=== PATIENT | male | born 1970 | race Caucasian/White ===

== ENCOUNTER 2020-06-22 17:21 | Outpatient (REF) | payer BC, SELFPAY ==
[2020-06-22 17:58] LABS: MANUAL DIFF FLAG NO
[2020-06-22 18:01] LABS: Basophils Percent Auto 0.7 % (0-2); Eosinophils Absolute Auto 0.2 X10*3/uL (0.0-0.4); Eosinophils Percent Auto 3.4 % (0-4); Hematocrit 45.1 % (42-52); Hemoglobin 15.3 g/dl (14.0-18.0); Imm Gran Abs Auto 0.02 X10*3/uL (0.00-0.03); Imm Gran Pct Auto 0.3 % (0.0-0.4); Lymphocytes Absolute Auto 1.4 X10*3/uL (1.2-4.9); Lymphocytes Percent Auto 22.6 % (20-40); Mean Corpuscular HGB Conc 33.9 g/dl (31.0-36.0); Mean Corpuscular Hemoglobin 29.4 pg (27.0-33.0); Mean Corpuscular Volume 86.7 fL (80-98); Mean Platelet Volume 9.5 fL (9.4-12.4); Monocytes Absolute Auto 0.5 X10*3/uL (0.1-1.2); Monocytes Percent Auto 7.3 % (2-11); Neutrophils Percent Auto 65.7 % (45-73); Platelet Count 226 X10*3/uL (160-400); White Blood Count 6.1 X10*3/uL (4.8-10.8)
[2020-06-22 18:11] LABS: Glucose Urine UA NEG (NEG); Leukocyte Esterase Urine NEG (NEG); Nitrite Urine NEG (NEG); Specific Gravity - Urine >= 1.030 (1.005-1.025); Urine Blood NEG (NEG); Urine Ketones NEG (NEG); Urine Protein NEG (NEG-TRACE)
[2020-06-22 18:20] LABS: Appearance Urine CLEAR; Color Urine YELLOW
[2020-06-22 18:27] LABS: Alanine Aminotransferase 18 U/L (0-40); Albumin Level 4.4 g/dL (3.5-5.0); Alkaline Phosphatase 65 U/L (39-117); Anion Gap 13 (12-20); Aspartate Amino Transferase 22 U/L (5-37); Bilirubin Total 0.9 mg/dL (0.0-1.0); Blood Urea Nitrogen 18 mg/dL (9-16); Carbon Dioxide 29 mmol/L (22-29); Chloride 105 mmol/L (96-108); Cholesterol 191 mg/dL; Estimated Glomerular Filt Rate > 60; Glucose Fasting 77 mg/dL (60-99); HDL Cholesterol 56 mg/dL; LDL Cholesterol Calculated 113 mg/dl; Potassium 3.7 mmol/L (3.3-5.1); Sodium 143 mmol/L (135-145); Total Protein 7.1 g/dL (6.5-8.0); Triglycerides 112 mg/dL
[2020-06-22 18:48] LABS: Free T4 (Free Thyroxine) 1.22 ng/dL (0.71-1.85); Prostate Specific Antigen 0.25 ng/mL (<0.05-4.0)
== END 2020-06-22 17:22 | disposition home or self-care (01) ==
LOC: HO.LAB 17:21
PROVIDERS: PCP Internal Medicine; Visit Provider Internal Medicine
DX: Z00.00 Encounter for general adult medical examination without abnormal findings (principal); I10 Essential (primary) hypertension; Z12.5 Encounter for screening for malignant neoplasm of prostate
CPT/HCPCS: 36415; 80053; 80061; 81003; 84153; 84439; 85025

== ENCOUNTER 2020-11-01 16:51 | Outpatient (REF) | payer BC, SELFPAY ==
[2020-11-01 18:14] LABS: Anion Gap 12 (12-20); Blood Urea Nitrogen 23 mg/dL (9-16); Calcium 9.5 mg/dL (8.4-10.2); Carbon Dioxide 29 mmol/L (22-29); Chloride 105 mmol/L (96-108); Estimated Glomerular Filt Rate > 60; Glucose Random 83 mg/dL (60-115); Potassium 3.9 mmol/L (3.3-5.1); Sodium 142 mmol/L (135-145)
[2020-11-01 18:38] LABS: Thyroid Stimulating Hormone 1.27 uIU/mL (0.32-4.0); Vitamin D 25-OH Total 32.3 ng/mL (>30)
[2020-11-01 18:42] LABS: Vitamin B12 287 pg/mL (200-900)
== END 2020-11-01 16:52 | disposition home or self-care (01) ==
LOC: HO.LAB 16:51
PROVIDERS: PCP Internal Medicine; Visit Provider Internal Medicine
DX: I10 Essential (primary) hypertension (principal); R53.83 Other fatigue; E55.9 Vitamin D deficiency, unspecified
CPT/HCPCS: 36415; 80048; 82306; 82607; 84443

== ENCOUNTER → 2020-12-21 08:33 | Outpatient (REF) | payer BC, SELFPAY ==
--- NOTE | 2020-12-21 08:30 | CA_ITS ---
Transthoracic Echocardiogram Patient (Last, First, Middle): Naren Forbes P Gender: Male Date of : 1970 Age: 50 Procedure Date: 12/21/2020 Procedure Type: Transthoracic Echocardiogram Location: OP Height: 182.88 cm Weight: 86.18 kg BSA: 2.08 m2 Heart Rate: bpm BP: 130 / 90 mmHg Continuous Churn Buttermaker: TORRI Referring MD: Wilian Horton MD Symptoms: I10 HTN R53.83 FATIGUE Study Quality: Fair/Contrast ECG Rhythm: Sinus Conclusions: - The left ventricular systolic function is mildly decreased. The calculated ejection fraction is 52% by biplane method. - No obvious valvular pathology seen on this study. Findings Procedure Information Contrast agent, definity, is being given per protocol without apparent complications. Left Ventricle Normal left ventricular cavity size. There is normal left ventricular wall thickness. The left ventricular systolic function is mildly decreased. The calculated ejection fraction is 52% by biplane method. There is no evidence of regional wall motion abnormalities. Diastolic function is normal for age. Right Ventricle Normal right ventricular cavity size and systolic function. TAPSE 2.24cm. Atria Both atria are normal in size. Aortic Valve There is a normal trileaflet aortic valve. There is no aortic valve stenosis. There is no aortic valve regurgitation. Mitral Valve The mitral valve appears normal. There is trace mitral valve regurgitation. There is no mitral valve stenosis. Pulmonic Valve The pulmonic valve was not well visualized. Tricuspid Valve Normal tricuspid valve structure. There is trace tricuspid valve regurgitation. The pulmonary artery systolic pressure is normal. Great Vessels The aortic annulus, sinuses of valsalva, and asc aorta are normal in size. Venous The inferior vena cava is normal in size and collapses greater than 50% with inspiration. Pericardium/Pleural There is no evidence of pericardial effusion. Prior Study Comparison No prior study available for comparison. Recommendations, Care & Conclusions No obvious valvular pathology seen on this study. Measurements 2D Linear Measurements IVSd: 0.92 0.6-0.9/0.6-1.0 cm LVIDd: 5.21 3.9-5.3/4.2-5.9 cm LVIDd Index: 2.50 2.4-3.2/2.2-3.1 cm/m2 LVIDs: 3.49 2.0-3.6 cm LVPWd: 0.72 0.7-1.1 cm Ao Root: 3.10 2.1-3.5 cm LA Diam: 3.70 2.7-3.8/3.0-4.0 cm LAIDs Index: 1.78 1.5-2.3 cm/m2 LV Mass: 187.20 67-162/88-224 g LV Mass Index: 90.00 43-95/49-115 g/m2 LVOT Diam: 2.20 3.0+(-)1.3 cm 2D Systolic Function EF 4C: 50.80 >55% EF 2C: 54.90 >55% EF BiP: 52.40 >55% Mitral Valve MV Pk E: 0.80 MV PK A: 0.75 MV Decel Time: 309.00 E/A: 1.10 E'Lateral: 10.60 E'Medial: 9.14 E/E' Med: 8.80 E/E' Lat: 7.60 PHT: 90.00 MVA PHT: 2.44 Decel Nolan: 2.60 Aortic Valve AoV Pk Edgard: 1.38 AoV Mn Edgard: 0.92 AoV VTI: 0.28 AoV Pk Grad: 8.00 Aov Mn Grad: 4.00 TRENT Cont.VTI: 3.21 LVOT LVOT Pk Edgard: 1.19 LVOT Mn Edgard: 0.81 LVOT VTI: 0.24 LVOT Pk Grad: 6.00 LVOT Mn Grad: 3.00 LVOT Diam: 2.20 LVOT Area: 3.80 Diastolic Function MV Pk E: 0.80 MV Pk A: 0.75 E/A: 1.10 E'Medial: 9.14 E/E' Med: 8.80 E' Laterial: 10.60 E/E' Lat: 7.60 Tricuspid Valve TR Pk Edgard: 1.79 TR Pk Grad: 13.00 RA Press: 3.00 RVSP: 16.00 Great Vessels Aorta Ao Root-2D: 3.10 2.0-3.7 cm Ao Asc: 3.40 2.1-3.4 cm Ao Arch: 2.90 Updated in Other Vendor System with Status of Final Roderick Tafoya MD electronically signed on 12/22/2020 11:21:33 AM with status of Final
== END ==
LOC: HO.CARD 08:33
PROVIDERS: PCP Internal Medicine; Visit Provider Internal Medicine
DX: I10 Essential (primary) hypertension (principal); R53.83 Other fatigue
CPT/HCPCS: 93306; Q9957

== ENCOUNTER 2021-02-25 06:26 | Day surgery (SDC) | payer BC, SELFPAY ==
[2021-02-19 15:55] VITALS: BMI 27.1
--- NOTE | 2021-02-22 08:41 | HO.ANESPROP2 ---
Documented by User: Dianne Todd NP 02/22/21 08:42 HPI - Anesthesia Eval Consult details Narrative: 51yo M for Colonoscopy [facility] Past Medical History Medical History (Updated 02/19/21 @ 15:54 by Sarah Galvin RN) HTN (hypertension) Surgical History Surgical History (Updated 02/19/21 @ 15:54 by Sarah Galvin, RN) No pertinent past surgical history Social History Social History Patient Tobacco Use Status: Never used Tobacco Use of substances other than those prescribed or required for medical reasons: No Are you DNR?: No Advance Directives: No Advance Directives Information Provided: Yes Meds Allergies Allergy/AdvReac Type Severity Reaction Status Date / Time No Known Allergies Allergy Verified 02/19/21 15:54 Home Medications Medication Instructions Recorded Confirmed Last Taken Type doxazosin 2 mg tablet 1 tab PO BEDTIME 02/19/21 02/19/21 Unknown History losartan 50 mg tablet 1 tab PO DAILY 02/19/21 02/19/21 Unknown History Exam Exam Date and Time: February 22, 2021 0841 Height,Weight and Vital Signs: Height 6 ft Weight 90.718 kg Narrative Narrative: ECHO 12/2020 Conclusions: - The left ventricular systolic function is mildly decreased.? ? The calculated ejection fraction is 52% by biplane method. ? ? ? - No obvious valvular pathology seen on this study.? ? Assessment and Plan Assessment Anesthesia Assessment: Chart Reviewed Documented by User: Christine Norton MD 02/25/21 07:15 [facility] Past Medical History Medical History (Updated 02/19/21 @ 15:54 by Sarah Galvin RN) HTN (hypertension) Surgical History Surgical History (Updated 02/19/21 @ 15:54 by Sarah Galvin, RN) No pertinent past surgical history Social History Social History Patient Tobacco Use Status: Never used Tobacco Use of substances other than those prescribed or required for medical reasons: No Are you DNR?: No Advance Directives: No Advance Directives Information Provided: Yes Meds Allergies Allergy/AdvReac Type Severity Reaction Status Date / Time No Known Allergies Allergy Verified 02/19/21 15:54 Home Medications Medication Instructions Recorded Confirmed Last Taken Type doxazosin 2 mg tablet 1 tab PO BEDTIME 02/19/21 02/19/21 Unknown History losartan 50 mg tablet 1 tab PO DAILY 02/19/21 02/19/21 Unknown History Exam Airway Mallampati Class: III TM Dist: >3cm Neck ROM: Full
[2021-02-25] MEDS: Lactated Ringers 1,000 ML 100 ML IVCONT (06:59)
[2021-02-25 07:55] VITALS: BP 137/80; PULSE 53; RESP 20; TEMP 36.5; O2SAT 97
[2021-02-25 08:22] VITALS: BP 111/63; PULSE 61; RESP 16; TEMP 36.3; O2SAT 96
--- NOTE | 2021-02-25 08:22 | PM.OP ---
Brief Operative Note Date of Service: 02/25/21 Pre-op diagnosis: Screening Post-op diagnosis: other (Colon polyps) Procedure: Colonoscopy to the cecum and TI with bx/removal of polyp, and snare polypectomy Surgeon: Naren Burt Anesthesia: MAC Was an Business Area Manager used for this Procedure?: No Estimated blood loss (mL): 3.0 Pathology: other (A. Polyp at 30cm B. Rectal polyp) Condition: stable Disposition: PACU
--- NOTE | 2021-02-25 08:35 | OP_ITS ---
SURGEON: Naren Burt MD INDICATIONS: The patient presents for evaluation of colorectal cancer screening. Full consent has been obtained from him for this, including risks of bleeding and perforation. PREOPERATIVE DIAGNOSIS: Colorectal cancer screening. POSTOPERATIVE DIAGNOSIS: PROCEDURE PERFORMED: Colonoscopy to cecum and terminal ileum with biopsy and removal of polyp, and snare polypectomy. ESTIMATED BLOOD LOSS: COMPLICATIONS: ANESTHESIA: Monitored anesthesia care. ASSISTANTS: SPECIMENS: POSTOPERATIVE DIAGNOSES: Colorectal cancer screening, small colon polyps, diverticulosis, and minimal internal hemorrhoids. DESCRIPTION OF PROCEDURE: The patient was placed in the left lateral decubitus position. The digital rectal exam revealed no abnormalities. The Olympus video pediatric colonoscope was entered into the rectum and advanced easily to the cecum. Once in the cecum, I did identify normal-appearing cecal pouch with appendiceal orifice and a normal-appearing ileocecal valve. The terminal ileum was cannulated and appeared normal. The scope was withdrawn back in the colon. The entire cecum and ileocecal valve appeared normal. The scope was slowly withdrawn assessing all mucosal surfaces carefully. Preparation was excellent. At 30 cm, was a flat approximately 3 mm polyp, which was biopsied and completely removed with cold biopsy forceps. There was a mild amount of sigmoid diverticulosis. There was no sign of any colitis nor angiodysplasia. In the rectum, in the retroflexed position, was an approximately 5 mm polyp, which was snared and removed with the cold snare. There was no sign of any residual polyp nor bleeding. Minimal internal hemorrhoids were noted as well. The scope was straightened out and withdrawn from the patient. He tolerated the procedure well and was returned to the recovery area in stable condition. IMPRESSION: 1. Small colon polyps, status post biopsy and removal, and snare polypectomy. 2. Mild sigmoid diverticulosis. 3. Minimal internal hemorrhoids. PLAN: The results of the pathology will be checked. If either of these are tubular adenoma, I would recommend a followup colonoscopy in 5 years. If they are only hyperplastic, I would recommend a followup colonoscopy in 10 years. He was advised not to use any aspirin and NSAIDs for 1 week. MD LINDA Tidwell/DEREKL / [id number]
[2021-02-25 08:37] VITALS: BP 117/83; PULSE 60; RESP 16; TEMP 36.3; O2SAT 96
== END 2021-02-25 09:15 | disposition home or self-care (01) ==
PROVIDERS: PCP Internal Medicine; Visit Provider Internal Medicine
PROC: 0DJD8ZZ Inspection of Lower Intestinal Tract, Via Natural or Artificial Opening Endoscopic (ICD-10-PCS; CPT 45378; principal; 2021-02-25 07:30)
DX: Z12.11 Encounter for screening for malignant neoplasm of colon (principal); D12.8 Benign neoplasm of rectum; K63.5 Polyp of colon; K57.30 Diverticulosis of large intestine without perforation or abscess without bleeding; K64.8 Other hemorrhoids; I10 Essential (primary) hypertension; Z79.899 Other long term (current) drug therapy
CPT/HCPCS: 45385; 45380; 88305

== ENCOUNTER 2023-05-19 07:39 | Outpatient (REF) | payer BC, SELFPAY ==
[2023-05-19 11:12] LABS: MANUAL DIFF FLAG NO
[2023-05-19 11:21] LABS: Basophils Percent Auto 0.9 % (0-2); Eosinophils Absolute Auto 0.1 X10*3/uL (0.0-0.4); Eosinophils Percent Auto 2.6 % (0-4); Hematocrit 43.7 % (42.0-52.0); Hemoglobin 14.9 g/dl (14.0-18.0); Imm Gran Abs Auto 0.02 X10*3/uL (0.00-0.03); Imm Gran Pct Auto 0.6 % (0.0-0.4); Lymphocytes Absolute Auto 0.8 X10*3/uL (1.2-4.9); Lymphocytes Percent Auto 24.4 % (20-40); Mean Corpuscular HGB Conc 34.1 g/dl (31.0-36.0); Mean Corpuscular Hemoglobin 29.4 pg (27.0-33.0); Mean Corpuscular Volume 86.4 fL (80.0-98.0); Mean Platelet Volume 9.5 fL (9.4-12.4); Monocytes Absolute Auto 0.3 X10*3/uL (0.1-1.2); Monocytes Percent Auto 8.8 % (2-11); Neutrophils Absolute Auto 2.1 x10*3/uL (2.0-8.3); Neutrophils Percent Auto 62.7 % (45-73); Platelet Count 208 X10*3/uL (160-400); Red Blood Count 5.06 X10*6/uL (4.60-5.80); Red Cell Distribution Width 12.3 % (11.0-16.0); White Blood Count 3.4 X10*3/uL (4.8-10.8)
[2023-05-19 11:50] LABS: Alanine Aminotransferase 41 U/L (0-40); Alkaline Phosphatase 61 U/L (39-117); Anion Gap 10 (12-20); Aspartate Amino Transferase 27 U/L (5-37); Bilirubin Total 0.9 mg/dL (0.0-1.0); Blood Urea Nitrogen 20 mg/dL (9-16); Calcium 9.4 mg/dL (8.4-10.2); Carbon Dioxide 26 mmol/L (22-29); Chloride 111 mmol/L (96-108); Cholesterol 170 mg/dL (<200); Estimated Glomerular Filt Rate > 60; Glucose Fasting 83 mg/dL (60-99); HDL Cholesterol 41 mg/dL (>40); LDL Cholesterol Calculated 116 mg/dL (<100); Potassium 4.1 mmol/L (3.3-5.1); Sodium 143 mmol/L (135-145); Total Protein 6.8 g/dL (6.5-8.0); Triglycerides 66 mg/dL (<150)
[2023-05-19 12:30] LABS: Prostate Specific Antigen Scr 0.18 ng/mL (<0.05-4.0)
== END 2023-05-19 07:40 | disposition home or self-care (01) ==
LOC: HO.10HDL 07:39
PROVIDERS: Visit Provider Internal Medicine
DX: Z00.00 Encounter for general adult medical examination without abnormal findings (principal); Z12.5 Encounter for screening for malignant neoplasm of prostate
CPT/HCPCS: 36415; 80053; 80061; 84153; 85025

== ENCOUNTER 2023-07-22 09:37 | Outpatient (AMB) | payer BC, SELFPAY ==
[2023-07-22 09:39] VITALS: BP 138/84; PULSE 73; O2SAT 98; BMI 30.2
--- NOTE | 2023-07-22 09:39 | A.OFFPC_ITS ---
Vital Signs 07/22/23 09:39 Height 6 ft Weight 223 lb 0.4 oz BMI 30.2 BP 138/84 Blood Pressure Location Lt brachial Position Sitting Pulse 73 Pulse Source Pulse Oximeter Pulse Oximetry (%) 98 Oxygen Delivery Method Room Air Intake Visit Reasons: ear / sinus pain Intake Note: pt states sinus pressure and ear pain X1week Test Bore Helper Required: No Allergies No Known Allergies Allergy (Verified 07/22/23 10:55) Medication List - Last Reconciled 07/22/23 by [place] No doxazosin 1 tab PO BEDTIME losartan 1 tab PO DAILY Tobacco use date assessed: 07/22/23 HPI HPI Comments History of Present Illness Details Here today ear pain & sinus pain had a cold a few weeks ago; sx resolved then 1.5 weeks ago having pain in L ear , + s inus pain Admits sinus pain is a little better feels like a foggy head admits chronic ear wax impaction feels different used dayquil/nyquil w/o relief PFSH Medical History (Updated 07/22/23 @ 11:02 by [place] No) HTN (hypertension) Surgical History (Updated 02/19/21 @ 15:54 by Sarah Galvin RN) No pertinent past surgical history Social History Housing: House Patient Tobacco Use Status: Never used Tobacco service: No Current occupational status: employed Cognitive needs: No Hearing needs: No Vision needs: No Questionnaire AUDIT C Alcohol Use Questionnaire (AUDIT-C) 1. How often do you have a drink containing alcohol?: Never 3. How often do you have six or more drinks on one occasion?: Never Total Score: 0 Review of Systems Const All systems reviewed & are unremarkable except as noted in HPI and below Physical exam (Primary Care) Vital Signs: Last Vital Signs Pulse 73 07/22/23 09:39 BP 138/84 07/22/23 09:39 Pulse Ox 98 07/22/23 09:39 Oxygen Delivery Method Room Air 07/22/23 09:39 BMI result Body Mass Index 30.2 Tobacco/Smoking Status: Tobacco use Status Tobacco use date assessed 07/22/23 07/22/23 09:41 Patient Tobacco Use Status Never used Tobacco 07/22/23 09:41 Const Other: Awake alert NAD Sclera and conjunctiva clear bilat Cerumen impaction on the left unable to see TM, cerumen in right EAC, able to see some of the TM which is intact and cloudy Nares patent, turbinates pale and edematous worse on the left side, maxillary sinus tenderness on the left with palpation MMM, pharynx WNL RRR LS CTAB Assessment and Plan Assessment & Plan (1) Acute sinus infection: Code(s): J01.90 - Acute sinusitis, unspecified Qualifiers: Sinusitis location: maxillary Recurrence: non-recurrent Qualified Code(s): J01.00 - Acute maxillary sinusitis, unspecified (2) Impacted cerumen of both ears: Code(s): H61.23 - Impacted cerumen, bilateral Plan: Medications: New amoxicillin-pot clavulanate 875-125 mg 1 tab PO BID 14 tabs 0RF 7 days Patient Instructions: What Is It? Sinuses are air-filled spaces behind the bones of the upper face: between the eyes and behind the forehead, nose and cheeks. The lining of the sinuses are made up of cells with tiny hairs on their surfaces called cilia. Other cells in the lining produce mucus. The mucus traps germs and pollutants and the cilia push the mucus out through narrow sinus openings into the nose. Wh en the sinuses become inflamed or infected, the mucus thickens and clogs the openings to one or more sinuses. Fluid builds up inside the sinuses causing increased pressure. Also bacteria can become trapped, multiply and infect the lining. This is sinusitis. Prevention There are some measures you can take to decrease your risk of developing sinusitis. If you smoke cigarettes, you should quit. The smoke can irritate nasal passageways and increase the likelihood of infection. Nasal allergies can trigger sinus infections, too. By identifying the allergen (the substance causing the allergic reaction) and avoiding it, you can help prevent sinusitis. If you have congestion from a cold or allergies, the following may help to reduce the risk of developing sinusitis: Drink lots of water. This thins nasal secretions and keeps mucous membranes moist. Use steam to soothe nasal passages. Breathe deeply while standing in a hot shower, or inhale the vapor from a basin filled with hot water while holding a towel over your head. Avoid blowing your nose with great force, which can push bacteria into the sinuses. Some doctors advise periodic home nasal washings to clear secretions. This may help prevent, and also treat, sinus infections. Treatment Many sinus infections improve without treatment. However, several medications may speed recovery and reduce the chance that an infection will become chronic. Decongestants - Congestion often triggers sinus infections, and decongestants can open the sinuses and allow them to drain. Several are available: Pseudoephedrine (Sudafed) is available without prescription, alone or in combination with other medications in multi-symptom cold and sinus remedies. Pseudoephedrine can cause insomnia, racing pulse and jitteriness. Do not use if you have high blood pressure or a heart condition. Phenylephrine (such as Sudafed PE) is an alternative clvm-imy-jnoeonn oral decongestant. If you take products containing oral phenylephrine, check with the pharmacist to be certain there is no interaction with other medications you take. Oxymetazoline (Afrin, Dristan and others) and phenylephrine (Mateo-Synephrine and others) are found in nasal sprays. They are effective and may be less likely to cause the side effects seen with pseudoephedrine. However, using a nasal decongestant for more than three days can cause worse symptoms when you stop the medication. This is called the rebound effect. Antihistamines - These medications help to relieve the symptoms of nasal allergies that lead to inflammation and infections. However, some doctors advise against using antihistamines during a sinus infection because they can cause excessive drying and slow the drainage process. Glod-hti-gtnfhja antihistamines include diphenhydramine (Benadryl and others), chlorpheniramine (Chlor-Trimeton and others) and loratadine (Claritin). Fexofenadine (Mari) and cetrizine (Zyrtec) are available by prescription. Nasal steroids - Anti-inflammatory sprays such as mometasone (Nasonex) and fluticasone (Flonase), both available by prescription, reduce swelling of nasal membranes. Like antihistamines, nasal steroids can be most useful for those who have nasal allergies. Nasal steroids tend to produce less drying than antihistamines. Unlike nasal decongestants, nasal steroids can be used for prolonged periods. Saline nasal sprays - These salt-water sprays are safe to use and can provide some relief by adding moisture to the nasal passages, thinning mucus secretions and helping to flush out any bacteria that may be present. Pain relievers - Acetaminophen (Tylenol), ibuprofen (Advil, Motrin and others) or naproxen (Aleve) can be taken sinus pain. Antibiotics - Your doctor may prescribe an antibiotic if he or she suspects that a bacterial infection is caus ing your sinusitis. If you start taking an antibiotic, complete the entire course so that the infection is completely killed off. Not all cases of sinusitis require antibiotic treatment: Talk with your doctor about whether an antibiotic is right for you. Keep in mind that antibiotics can cause side effects, such as allergic reactions, rash and diarrhea. In addition, overusing antibiotics eventually leads to the spread of bacteria that no longer can be killed by the most commonly prescribed antibiotics. When To Call A Professional Contact a doctor if you experience facial pain along with a headache and fever, cold symptoms that last longer than seven to 10 days, or persistent green discharge from the nose. If your symptoms don't improve within a week of beginning treatment, call your doctor. Call sooner if symptoms are getting worse. If you have repeated bouts of acute sinusitis, you may have allergies or another treatable cause of sinus congestion. Ask your doctor for advice. Earwax (Cerumen Impaction) Created in Ears Earwax, called cerumen, is produced by special wax-forming glands located in the skin of the outer one-third of the ear canal. It is normal to have cerumen in ear canal as this waxy substance serves as a self-cleaning agent with protective, lubricating, and antibacterial properties. The absence of earwax may result in dry, itchy ears. Self-cleaning means there is a slow and program services assistant movement of earwax and skin cells from the eardrum to the ear opening. Old earwax is constantly being transported, assisted by chewing and jaw motion, from the ear canal to the ear opening where, most of the time, it dries, flakes, and falls out. What Are the Symptoms of an Earwax Blockage? Symptoms of an earwax problem may include: Earache Feeling of plugged hearing or fullness in the ear Partial hearing loss that gets worse Tinnitus, ringing, or noises in the ear Itching, odor, or discharge Coughing Pain Infection What Causes Earwax Blockage? When a patient has wax blockage against the eardrum, it is often because they have been probing the ear with such things as cotton-tipped swabs, alia pins, or twisted napkin corners. These objects only push the wax in deeper in the ear canal. Why Is It Dangerous to Use Swabs to Remove Earwax? Wax blockage is one of the most common causes of hearing loss. This is often caused by attempts to clean the ear with cotton swabs. Most cleaning attempts merely push the wax deeper into the ear canal which is shaped like an hourglass, causing a blockage at the narrowing part of the ear canal. In addition, accidental trauma to the ear drum or ear bones can occur if the swab is pushed too deep. Good intentions to keep ears clean may lessen the ability to hear. The ear is a delicate and complicated body part, including the skin of the ear canal and the eardrum. Therefore, special care should be given to this part of the body. Discontinue the habit of inserting cotton-tipped swabs or other objects into the ear canals. What Are the Treatment Options? Cleaning a working ear can be done by washing it with a soft cloth, but do not insert anything into the ear. Ideally, the ear canals should never have to be c leaned. However, that isn?t always the case. The ears should be cleaned when enough earwax gathers to cause symptoms or to prevent a needed assessment of the ear by your doctor. This condition is call cerumen impaction. Most cases of ear wax blockage respond to home treatments used to soften wax. Patients can try placing a few drops of mineral oil, baby oil, glycerin, or commercial drops in the ear. Detergent drops such as hydrogen peroxide or carbamide peroxide (available in most pharmacies) may also aid in the removal of wax. Irrigation or ear syringing is commonly used for cleaning and can be performed by a physician or at home using a commercially available irrigation kit. Common solutions used for syringing include water and saline, which should be warmed to body temperature to prevent dizziness. Ear syringing is most effective when water, saline, or wax dissolving drops are put in the ear canal 15 to 30 minutes before treatment. Caution is advised to avoid having your ears irrigated if you have diabetes, a hole in the eardrum (perforation), tube in the eardrum, skin problems such as eczema in the ear canal or a weakened immune system. >> If you have been prescribed Debrox, use as directed for 5 nights and return to the office on Day 6 for an ear lavage to remove the wax<< Manual removal of earwax is also effective. This is most often performed by an ENT (ear, nose, and throat) specialist, or orthodontic technician, using suction or special miniature instruments, and a microscope to magnify the ear canal. Manual removal is preferred if your ear canal is narrow, the eardrum has a perforation or tube, other methods have failed, or if you have skin problems affecting the ear canal, diabetes or a weakened immune system. When Should I Talk to a Doctor? If home treatments do not help, or if wax has accumulated so much that it blocks your ear canal and your ability to hear, an ENT specialist may prescribe eardrops designed to soften wax, or they may wash or vacuum it out. Your ENT specialist may also need to remove the wax under microscopic visualization. If there is a possibility of a perforation in the eardrum, consult a physician prior to trying any gkhn-tgy-wtppgmc remedies. Putting eardrops or other products in the ear with the presence of an eardrum perforation may cause pain or an infection. Washing water through such a hole could start an infection. If you are prone to repeated wax impaction or use hearing aids, consider seeing your doctor every six to 12 months for a checkup and routine preventive cleaning. What Questions Should I Ask My Doctor? What are the benefits and risks/side effects of different cerumen removal management options: earwax softening products, water irrigation vs. physical removal? Does cerumen accumulation vary with age, gender, familial or dietary intake? How do I manage swimming underwater with cerumen impaction? Should anything be done to the ears to prevent a buildup of earwax? How often should cerumen be removed from the ears? Are ear candles a safe option for removing earwax? Coding Level of Care Code Est Pt Level 3 (29025) Diagnoses Acute non-recurrent maxillary sinusitis J01.00 Sinusitis location: maxillary Recurrence: non-recurrent Impacted cerumen of both ears H61.23
== END 2023-07-22 11:04 | disposition home or self-care (01) ==
PROVIDERS: PCP Internal Medicine; Visit Provider Nurse Practitioner Family
DX: J01.00 Acute maxillary sinusitis, unspecified (principal); H61.23 Impacted cerumen, bilateral
CPT/HCPCS: 99213

== ENCOUNTER → 2023-10-28 10:59 | Outpatient (AMB) | payer BC, SELFPAY ==
--- NOTE | 2023-10-28 11:21 | AM.OFFWIN_ITS ---
Intake Vital Signs 10/28/23 11:22 Weight 221 lb 8 oz BP 128/82 Blood Pressure Location Lt brachial Position Sitting Pulse 58 Pulse Source Pulse Oximeter Pulse Oximetry (%) 98 Oxygen Delivery Method Room Air Intake Visit Reasons: Clogged ears Intake Note: patient here c/o clogged ears. 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 He states that it feels like his ears need to get flushed. No ear pain. No sinus pain or pressure. No fevers or chills. No dizziness. He is intermittently using Debrox drops. Left ear feels worse than right. No ringing. ON LICENSE OF [facility] Medical History (Updated 10/28/23 @ 13:19 by Laura York PA-C) HTN (hypertension) Surgical History (Updated 02/19/21 @ 15:54 by Sarah Galvin RN) No pertinent past surgical history Social History Housing: House Patient Tobacco Use Status: Never used Tobacco service: No Current occupational status: employed Cognitive needs: No Hearing needs: No Vision needs: No Physical Exam Vital Signs: Last Vital Signs Pulse 58 10/28/23 11:22 BP 128/82 10/28/23 11:22 Pulse Ox 98 10/28/23 11:22 Oxygen Delivery Method Room Air 10/28/23 11:22 Const Orientation/consciousness: patient oriented x3 HEENT Other: Cerumen impaction noted on the left. Moderate amount of cerumen noted on the right. Following ear lavage canals are clear, TMs WNL. Ears: hearing grossly normal bilaterally Face and sinus: Yes sinuses nontender Mouth: Normal oral and palatal mucosa present Throat: Yes posterior oropharynx normal Neck Thyroid: Thyroid normal Lymphatic: no lymphadenopathy noted Resp Auscultation: clear to auscultation bilaterally Cardio Rate: regular rate Rhythm: regular rhythm Heart sounds: S1 normal heart sound present and S2 normal heart sound present Neuro General: patient oriented x3, gait normal and no focal motor deficits Assessment & Plan Assessment & Plan (1) Impacted cerumen of both ears: Code(s): H61.23 - Impacted cerumen, bilateral Plan: Ear lavage completed. Consent obtained. Following ear lavage canals are clear. TMs WNL. Follow up if needed. Patient understands and agrees with the plan. (2) HTN (hypertension): Code(s): I10 - Essential (primary) hypertension Plan: Continue losartan. BP WNL today. Coding Level of Care Code Est Pt Level 3 (12134) Diagnoses Impacted cerumen of both ears H61.23 HTN (hypertension) I10
[2023-10-28 11:22] VITALS: BP 128/82; PULSE 58; O2SAT 98
== END ==
PROVIDERS: PCP Internal Medicine; Visit Provider Physician Assistant
DX: H61.23 Impacted cerumen, bilateral (principal); I10 Essential (primary) hypertension
CPT/HCPCS: 69209; 99213

== ENCOUNTER 2024-10-12 14:43 | Outpatient (AMB) | payer BC, SELFPAY ==
--- OUTSIDE RECORDS SUMMARY | 2024-10-12 14:46 | XMS_ITS | Patient Health Record ---
Author Organization [facility] Address [address] [place] [address] Care Team Providers Care Bridge Tender Name Role Phone Wilian Horton MD Primary Care Provider Unavaila Art Basilio Unavailable [phone] Reason For Referral No Information Medications Medication SIG (Take, Route, Frequency, Duration) Notes Start Date End Date Status Ibuprofen PRN Active Doxazosin Mesylate 2 MG Orally Active Losartan Potassium 50 MG Orally Active Immunizations Vaccine Route Administration Date Status Comme nts Influenza Unknown 02/29/2020 Administered Social History Tobacco Use: Social History Observation Description Date Details (start date - stop date) Never Smoker NA - NA Tobacco Use/Smoking Question Answer Notes Patient is a nonsmoker Alcohol Screen Question Answer Notes Did you have a drink contain ing alcohol in the past year? Yes How often did you have a dri nk containing alcohol in the past year? 2 to 4 times a month (2 points) How many drinks did you have on a typical day when you were drinking in the past year? 3 or 4 drinks (1 point) How often did you have 6 or more drinks on one occasion in the past year? Less than monthly (1 point) Points 4 Interpretation Positive Section Notes: Nonsmoker; no sig alcohol Problems Problem Type SNOMED Code ICD Code Onset Dates Problem Status W/U Status Risk Notes Problem 824219374 Encounter for screening for malignant neoplasm of colon (Z12.11) Active confirmed Problem 537776931431554 Preprocedural examination (Z01.818) Active confirmed Problem Diverticulosis of colon (909028453) Diverticulosis of colon (K57.30) Active confirmed Plan Of Treatment Pending Test Test Name Order Date Pathology 02/25/2021 Future Test Test Name Order Date COLONOSCOPY 09/05/2020 Insurance Providers Payer Name Payer Address Payer Phone Subscriber Number Group Number Insured Name Patient Relationship to Insured Coverage Start Date Coverage End Date [facility] [address] [place], [place] [id number] [phone] [id number] ART FROST Self - patient is the insured Medical (General) History Medical History History ICD Code Hypertension Denies HI,DM,CVA,Lung disease,renal dise ase Surgical History Surgery Date(Month/Year)
--- NOTE | 2024-10-12 14:56 | MHC.PC.OV ---
Vital Signs 10/12/24 15:20 Height 6 ft Weight 210 lb BMI 28.5 BP 130/80 Blood Pressure Location Lt brachial Position Sitting Pulse 59 Pulse Source Pulse Oximeter Temp 98.2 F Temp Source Axillary Pulse Oximetry (%) 99 Oxygen Delivery Method Room Air Intake Visit Reasons: Routine Quality Assurance Representative Required: No Accompanied by: Self / Same As Patient Allergies No Known Allergies Allergy (Verified 10/12/24 14:59) Tobacco use date assessed: 07/22/23 Dental Screening Dental Screen Date: 10/12/24 Did you have a dental visit in the last 12 months?: Yes Did you have a dental problem in the last 6 months where you did not have access to dental care?: No PFSH Medical History HTN (hypertension) Surgical History History of colonoscopy (~02/25/21) No pertinent past surgical history Family History (Updated 10/12/24 @ 15:24 by Karyn Gomez MA) Mother No problems noted. Father No problems noted. Social History Housing: House Patient Tobacco Use Status: Never used Tobacco e-Cigarette/Vaping Use: Never Used service: No Current occupational status: employed Cognitive needs: No Hearing needs: No Vision needs: Yes (rx glasses) Questionnaire PHQ-9 Over the last 2 weeks, how often have you been bothered by any of the following problems? 1. Little interest or pleasure in doing things: not at all 2. Feeling down, depressed, or hopeless: not at all 3. Trouble falling or staying asleep, or sleeping too much: not at all 4. Feeling tired or having little energy: not at all 5. Poor appetite or overeating: not at all 6. Feeling bad about yourself - or that you are a failure or have let yourself or your family down: not at all 7. Trouble concentrating on things, such as reading the newspaper or watching television: not at all 8. Moving or speaking so slowly that other people could have noticed. Or the opposite - being so fidgety or restless that you have been moving around a lot more than usual: not at all 9. Thoughts that you would be better off or of hurting yourself in some way: not at all Total score: 0 Source: Developed by Drs. Naren Stevenson, James Arcos and colleagues, with an educational carla from [employer]. Thrive Questionnaire Date Thrive assessed: 10/12/24 I am a: Patient Within the past 12 months, did the food you bought not last and you didn't have the money to get more?: Never true Within the past 12 months, did you worry whether your food would run out before you got money to buy more?: Never true Do you have trouble paying for medicines?: No Do you have trouble getting transportation to medical appointments?: No Do you have trouble paying your heating and electricity bill?: No Do you have trouble taking care of your child, family member or friend?: No Do you have trouble with day-to-day activities such as bathing, preparing meals, shopping, managing finances, etc.?: No Are you currently unemployed and looking for a job?: No Are you interested in more education?: No THRIVE Score: 0 AUDIT C Alcohol Use Questionnaire (AUDIT-C) 1. How often do you have a drink containing alcohol?: Monthly or less 2. How many drinks containing alcohol do you have on a typical day when you are drinking?: 1 or 2 3. How often do you have six or more drinks on one occasion?: Less than monthly Total Score: 2 HANY-7 AMB Questionnaire HANY-7 Date HANY - 7 assessed: 10/12/24 Feeling nervous, anxious, or on edge: 0 = Not at all Not being able to stop or control worryin = Not at all Worrying too much about different things: 0 = Not at all Trouble relaxin = Not at all Being so restless that it is hard to sit still: 0 = Not at all Becoming easily annoyed or irritable: 0 = Not at all Feeling afraid as if something awful might happen: 0 = Not at all Total HANY-7 score (0-4 normal; 5-9 mild; 10-14 moderate; 15-21 severe): 0 Source: Developed by Drs. Naren Stevenson, James Arcos and colleagues, with an educational carla from [employer]. Physical exam (Primary Care) Vital Signs: Last Vital Signs Temp 98.2 F 10/12/24 15:20 Pulse 59 10/12/24 15:20 BP 130/80 10/12/24 15:20 Pulse Ox 99 10/12/24 15:20 Oxygen Delivery Method Room Air 10/12/24 15:20 BMI result Body Mass Index 28.5 Tobacco/Smoking Status: Tobacco use Status Tobacco use date assessed 07/22/23 10/12/24 14:58 Patient Tobacco Use Status Never used Tobacco 10/12/24 14:58 e-Cigarette/Vaping Use Never Used 10/12/24 15:26 PHQ-9: PHQ-9 Score PHQ-9: Total score 0 10/12/24 15:26 Thrive Assessment: Date of Thrive Assessment Date Thrive assessed 10/12/24 10/12/24 15:26 Coding Level of Care Code New Pt Level 4 (53117) Complex EM visit Add On G2211 Diagnoses HTN (hypertension) I10 Enlarged prostate N40.0 Assessment & Plan Assessment & Plan (1) HTN (hypertension): Code(s): I10 - Essential (primary) hypertension Category: Medical Plan: BP in range (2) Enlarged prostate: Code(s): N40.0 - Benign prostatic hyperplasia without lower urinary tract symptoms Plan: PSA ordered Plan History of Present Illness - The patient is a 54-year-old male presenting with genitourinary concerns, primarily frequent urination and nocturia. - Family history is significant for benign prostatic hyperplasia in the father, with no malignant prostate history reported. - Reports indicate some urinary hesitancy and post-void dribbling, suggestive of incomplete bladder emptying. - Currently on doxazosin for BPH without significant relief. - Past medical history includes hyperlipidemia, with a slight elevation in cholesterol noted in last labs (May 2023). - Managed on losartan for essential hypertension; the patient shows interest in lifestyle modifications to potentially reduce reliance on medications. - Exercise routine includes running three times weekly; dietary habits mentioned are consistent with good health practices, including minimal added salt and sugar intake. 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 - Engages in running three times a week as part of a physical activity regime. - Desires to increase to four days a week with higher mileage. - Consumes minimal added salt and sugar in the diet; coffee intake frequently without additives. - Enjoys beer typically on weekends (Fridays and Saturdays). - Does not smoke and does not have significant changes in vision during daytime activities. - Manages stress through returning to running, suggesting a positive health behavior change focused on physical fitness. Review of Systems - Genitourinary: Reports nocturia and increased urinary frequency. Denies issues with erection. Reports occasional urinary hesitancy and post-void dribbling. - Cardiovascular: Denies symptoms since beginning losartan. - Nutritional: Reports minimizing sugar and salt intake and consuming black coffee. - Vision: Reports decreased night vision clarity, denies seeing halos. Physical Exam General: Cooperative and healthy appearing Nutritional Appearance: Well nourished Orientation/consciousness: Patient oriented x3 Limitations: No limitations Head: Normal to inspection General: Appearance normal, both eyes and all related structures Neck: Normal visual inspection Chest: Normal palpation of entire chest wall Respiratory: N ormal respiratory effort Neurology: Patient oriented x3, no issues with vision except for reduced night vision without halos. Results - Labs: Previous blood work (May 2023) showed slight elevation in cholesterol levels. Plan 1. Benign Prostatic Hyperplasia Bph - Conduct a fasting blood work for PSA testing. - Evaluate doxazosin treatment, with further intervention consideration based on symptom escalation. 2. Essential Hypertension - Maintain losartan therapy, emphasizing lifestyle changes to achieve blood pressure targets. - Advise frequent blood pressure self-monitoring. 3. Hyperlipidemia - Recheck lipid levels with fasting blood test. - Contemplate medication if lipid levels remain elevated; reinforce dietary and exercise recommendations. Discussion Notes I discussed with the patient his current concerns regarding frequent urination and nocturia related to benign prostatic hyperplasia. Patient history and familial context were considered, and I proposed obtaining a PSA level through blood work to guide further management. We reviewed his current doxazosin treatment and potential follow-up interventions. For essential hypertension, I recommended continuing losartan with proactive lifestyle modifications, emphasizing the importance of regular exercise and a balanced diet to manage stress. We discussed his cholesterol management, and I suggested repeating lipid profile tests to determine if medication is necessary. The patient is aware of the necessity for continuous blood pressure monitoring and maintaining open communication about symptom development, with a consideration for medication review if health indicators shift significantly. Patient Instructions - Get fasting blood work to check PSA and cholesterol levels. - Keep taking doxazosin and losartan as prescribed. - Exercise regularly, aiming for at least three to four running sessions a week. - Monitor blood pressure regularly, targeting below 126/80 mmHg. - Follow a heart-healthy diet with low salt and sugar. - Schedule follow-up appointment in six months or sooner if symptoms change. Orders: Orders Complete Blood Count no Diff Today I10 - Essential (primary) hypertension UA and rflx microscopic Today I10 - Essential (primary) hypertension Basic Metabolic Panel Today I10 - Essential (primary) hypertension Liver Panel Today I10 - Essential (primary) hypertension Lipid Panel Today I10 - Essential (primary) hypertension Thyroid Stimulating Hormone Today I10 - Essential (primary) hypertension Prostate Specific Antigen Scr Today I10 - Essential (primary) hypertension, N40.0 - Benign prostatic hyperplasia without lower urinary tract symptoms
[2024-10-12 15:20] VITALS: BP 130/80; PULSE 59; TEMP 36.8; O2SAT 99; BMI 28.5
== END 2024-10-12 16:06 | disposition home or self-care (01) ==
LOC: HO.HMCHD 14:43
PROVIDERS: PCP Internal Medicine; Visit Provider Internal Medicine
DX: I10 Essential (primary) hypertension (principal); N40.0 Benign prostatic hyperplasia without lower urinary tract symptoms

== ENCOUNTER → 2024-10-12 14:43 | Outpatient (BNVA) | payer BC, SELFPAY | PROVIDERS: PCP Internal Medicine; Visit Provider Internal Medicine ==

== ENCOUNTER 2024-10-14 09:09 | Outpatient (REF) | payer BC, SELFPAY ==
--- OUTSIDE RECORDS SUMMARY | 2024-10-14 09:36 | XMS_ITS | Patient Health Record ---
Author Organization [facility] Address [address] [place] [address] Care Team Providers Care Engineer Internship Name Role Phone Wilian Horton MD Primary Care Provider Unavaila Art Basilio Unavailable [phone] Reason For Referral No Information Medications Medication [...] Problem Status W/U Status Risk Notes Problem [id number] Encounter for screening for malignant neoplasm of colon (Z12.11) Active confirmed Problem [id number] Preprocedural examination (Z01.818) Active confirmed Problem Diverticulosis of colon (995433319) Diverticulosis of colon (K57.30) Active confirmed Plan Of Treatment Pending Test Test Name Order Date Pathology 02/25/2021 Future Test Test Name Order Date COLONOSCOPY 09/05/2020 Insurance Providers Payer Name Payer Address Payer Phone Subscriber Number Group Number Insured Name Patient Relationship to Insured Coverage Start Date Coverage End Date [facility] [address] [place], [place] [id number] ART FROST Self - patient is the insured Medical (General) History Medical History History ICD Code Hypertension Denies OR,DM,CVA,Lung disease,renal dise ase Surgical History Surgery Date(Month/Year)
[2024-10-14 11:25] LABS: Hematocrit 42.7 % (42.0-52.0); Hemoglobin 14.7 g/dl (14.0-18.0); Mean Corpuscular HGB Conc 34.4 g/dl (31.0-36.0); Mean Corpuscular Hemoglobin 30.1 pg (27.0-33.0); Mean Corpuscular Volume 87.5 fL (80.0-98.0); Mean Platelet Volume 9.4 fL (9.4-12.4); Platelet Count 197 X10*3/uL (160-400); Red Blood Count 4.88 X10*6/uL (4.60-5.80); Red Cell Distribution Width 12.9 % (11.0-16.0); White Blood Count 3.8 X10*3/uL (4.8-10.8)
[2024-10-14 11:43] LABS: Appearance Urine Clear; Color Urine Dark Yellow; Glucose Urine UA Negative (Negative); Leukocyte Esterase Urine Negative (Negative); Nitrite Urine Negative (Negative); Specific Gravity - Urine >= 1.030 (1.005-1.025); Urine Blood Negative (Negative); Urine Ketones Trace mg/dL (Negative); Urine Protein Trace mg/dL (Neg-Trace)
[2024-10-14 11:57] LABS: Prostate Specific Antigen Scr 0.27 ng/mL (<0.05-4.0)
[2024-10-14 13:08] LABS: Thyroid Stimulating Hormone 1.37 uIU/mL (0.32-4.0)
[2024-10-14 13:16] LABS: Anion Gap 9 (12-20)
[2024-10-14 13:21] LABS: Alanine Aminotransferase 33 U/L (0-40); Albumin Level 4.3 g/dL (3.5-5.0); Alkaline Phosphatase 68 U/L (39-117); Aspartate Amino Transferase 29 U/L (5-37); Bilirubin Direct 0.4 mg/dL (0.0-0.5); Bilirubin Total 1.1 mg/dL (0.0-1.0); Blood Urea Nitrogen 24 mg/dL (9-16); Calcium 9.5 mg/dL (8.4-10.2); Carbon Dioxide 29 mmol/L (22-29); Chloride 112 mmol/L (96-108); Cholesterol 174 mg/dL (<200); Estimated Glomerular Filt Rate > 60; Glucose Random 79 mg/dL (60-115); HDL Cholesterol 42 mg/dL (>40); LDL Cholesterol Calculated 119 mg/dL (<100); Sodium 146 mmol/L (135-145); Total Protein 6.9 g/dL (6.5-8.0); Triglycerides 69 mg/dL (<150)
== END 2024-10-14 09:10 | disposition home or self-care (01) ==
LOC: HO.WFDLDS 09:09
PROVIDERS: Visit Provider Internal Medicine
DX: N40.0 Benign prostatic hyperplasia without lower urinary tract symptoms (principal); I10 Essential (primary) hypertension; Z12.5 Encounter for screening for malignant neoplasm of prostate
CPT/HCPCS: 36415; 80048; 80061; 80076; 81003; 84153; 84443; 85027

== ENCOUNTER 2025-04-12 15:36 | Outpatient (AMB) | payer BC, SELFPAY ==
--- NOTE | 2025-04-12 15:40 | MHC.PC.OV ---
Vital Signs 04/12/25 15:45 Height 5 ft 10.35 in Weight 210 lb BMI 29.8 BP 152/90 H Blood Pressure Location Lt brachial Position Sitting Respiration 18 Pulse 52 Pulse Source Pulse Oximeter Temp 97.9 F Pulse Oximetry (%) 99 Oxygen Delivery Method Room Air Intake Visit Reasons: 6 Month F/U - see comments Lathing Supervisor Required: No Accompanied by: Self / Same As Patient Allergies No Known Allergies Allergy (Verified 04/12/25 15:41) Medication List - Last Reconciled 04/12/25 by Robert Esquivel MD cholecalciferol (vitamin D3) 25 mcg PO DAILY doxazosin 2 mg PO BEDTIME finasteride 5 mg PO DAILY losartan 100 mg PO DAILY Tobacco use date assessed: 07/22/23 Dental Screening Dental Screen Date: 10/12/24 HPI HPI Comments History of Present Illness Details History of Present Illness The patient is a 55 year old individual presenting for management of urinary symptoms and chronic conditions. The patient reports urinary symptoms including frequent urination at night, a weak urinary stream, and a sensation of incomplete bladder emptying. The patient is currently taking doxazosin for these symptoms but reports it is not effectively helping. The patient has a history of hypertension and is treated with losartan 100 mg, but acknowledges the blood pressure remains high. The patient attributes the elevated blood pressure partly to work-related stress and notes it was better during a visit in October. Lab results from October showed an LDL cholesterol of 119. Regarding lifestyle, the patient reports drinking two to three IPAs about three days per week and acknowledges a high coffee intake. 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 Over the last couple of weeks, the patient has experienced some nausea, which may be related to diet or a possible viral illness. Medical History: - Benign prostatic hyperplasia - Hypertension - Hyperlipidemia Surgical History: No surgical history was discussed. Medications: - Doxazosin for prostate symptoms - Losartan 100 mg for hypertension Family History: No family history was discussed. Diagnostic Results: - Labs (from October): - LDL cholesterol: 119 mg/dL - Total cholesterol: 174 mg/dL Social History - Tobacco: The patient denies ever smoking. - Alcohol: The patient reports drinking two to three IPAs on three days of the week. - Diet: The patient acknowledges a high coffee intake. 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 - Occupation: The patient works for [employer]. Health Maintenance - Counseled on lifestyle modifications to be implemented over the next six months. - Recommended dietary changes, including reducing salt, processed foods, fatty foods, and butter. - Advised to reduce high-risk alcohol consumption. - Scheduled for a follow-up physical in 6 months. - Blood work has been ordered to be completed one week before the next appointment. Patient was informed and verbally consented to the use of an ambient scribe for clinic note documentation during this visit. Vital signs reviewed. Comprehensive history, review of systems, and physical exam completed. Medications, allergies, and problem list reviewed and updated. Counseling provided on nutrition, regular exercise, sleep hygiene, and moderation of alcohol use. Discussed age-appropriate screenings (mammogram, colonoscopy, Pap, bone density) and immunizations (flu, COVID, shingles, Tdap). Screened for depression, fall risk, and home safety; no current concerns. Discussed stress management, dental and vision care, and importance of ongoing preventive follow-up. Routine labs ordered for metabolic and lipid screening. Patient educated on healthy lifestyle and agrees with the plan. [facility] Medical History (Updated 04/12/25 @ 16:00 by Robert Esquivel MD) Mixed hyperlipidemia Alcohol use BPH w urinary obs/LUTS HTN (hypertension) Surgical History History of colonoscopy (~02/25/21) No pertinent past surgical history Family History (Updated 10/12/24 @ 15:24 by Karyn Gomez MA) Mother No problems noted. Father No problems noted. Social History Housing: House Patient Tobacco Use Status: Never used Tobacco e-Cigarette/Vaping Use: Never Used service: No Current occupational status: employed Cognitive needs: No Hearing needs: No Vision needs: Yes (rx glasses) Questionnaire Thrive Questionnaire Date Thrive assessed: 10/12/24 AUDIT C Alcohol Use Questionnaire (AUDIT-C) 1. How often do you have a drink containing alcohol?: 2-3 times a week 2. How many drinks containing alcohol do you have on a typical day when you are drinking?: 3 or 4 3. How often do you have six or more drinks on one occasion?: Never Total Score: 4 Score Reviewed/Action Taken: Yes HANY-7 AMB Questionnaire HANY-7 Date HANY - 7 assessed: 10/12/24 Source: Developed by Drs. Naren Stevenson, Joelle Balderas, James Greene and colleagues, with an educational carla from [employer]. Review of Systems Narrative Review of Systems - Genitourinary: Reports nocturia, a weak urinary stream, and a sensation of incomplete bladder emptying. - Gastrointestinal: Reports intermittent nausea over the last couple of weeks; denies diarrhea. - Constitutional: Denies chest pain or shortness of breath. All systems reviewed & are unremarkable except as reviewed in HPI and above Physical exam (Primary Care) Vital Signs: Last Vital Signs Temp 97.9 F 04/12/25 15:45 Pulse 52 04/12/25 15:45 Resp 18 04/12/25 15:45 BP 152/90 H 04/12/25 15:45 Pulse Ox 99 04/12/25 15:45 Oxygen Delivery Method Room Air 04/12/25 15:45 BMI result Body Mass Index 29.8 Tobacco/Smoking Status: Tobacco use Status Tobacco use date assessed 07/22/23 04/12/25 15:43 Patient Tobacco Use Status Never used Tobacco 04/12/25 15:43 e-Cigarette/Vaping Use Never Used 04/12/25 15:43 Thrive Assessment: Date of Thrive Assessment Date Thrive assessed 10/12/24 04/12/25 15:43 Narrative Physical Exam General: +Alert and oriented, Well nourished, No acute distress. Eye: Pupils are equal, round and reactive to light, Intact accommodation, Extraocular movements are intact, Normal conjunctiva, Vision unchanged. HENT: Normocephalic, Atraumatic, Tympanic membranes are clear, Normal hearing, Oral mucosa is moist, No pharyngeal erythema, Ear canals patent. Respiratory: Lungs CTA bilaterally, No wheeze, Respirations are non-labored. Cardiovascular: Regular rate, Regular rhythm, S1 auscultated, S2 auscultated, No murmur, Good pulses equal in all extremities, Normal peripheral perfusion, No edema. Gastrointestinal: Soft, Non-tender, Non-distended, Normal bowel sounds, No organomegaly. Musculoskeletal: Normal range of motion, Normal strength, No tenderness, No swelling, No deformity, Normal gait. Integumentary: Warm, Dry, [place], Intact. Neurologic: Alert, Oriented, Normal sensory, Normal motor function, No focal defects, Cranial Nerves II-XII are grossly intact, Normal deep tendon reflexes. Psychiatric: Cooperative, Appropriate mood & affect, Normal judgment. Coding Level of Care Code Est Pt Level 4 (13832) Complex visit Add On G2211 Diagnoses Primary hypertension I10 Hypertension type: primary hypertension BPH w urinary obs/LUTS N40.1; N13.8 Alcohol use F10.90 Mixed hyperlipidemia E78.2 Assessment & Plan Assessment & Plan (1) HTN (hypertension): Comment: - The patient's blood pressure remains elevated on losartan 100 mg. - The plan is to discontinue the current losartan and start a combination pill of losartan-hydrochlorothiazide. - Lifestyle contributions, including high salt and alcohol intake, were discussed as factors, and the patient was advised to reduce both. Code(s): I10 - Essential (primary) hypertension Category: Medical Qualifiers: Hypertension type: primary hypertension Qualified Code(s): I10 - Essential (primary) hypertension (2) BPH w urinary obs/LUTS: Comment: - The patient's symptoms of nocturia, weak stream, and incomplete bladder emptying are ongoing despite treatment with doxazosin. - Plan is to add finasteride. - The patient was also counseled on behavioral modifications, including reducing fluid intake after 7 p.m., cutting down on caffeine intake after 3 p.m., and ensuring complete bladder emptying before bed. Code(s): N40.1 - Benign prostatic hyperplasia with lower urinary tract symptoms; N13.8 - Other obstructive and reflux uropathy Category: Medical (3) Alcohol use: Comment: Out at C4 and advised patient to cut down alcohol intake to help with improvement in blood pressure and overall weight loss. Code(s): F10.90 - Alcohol use, unspecified, uncomplicated Category: Social Hx (4) Mixed hyperlipidemia: Comment: - Based on an elevated LDL of 119 from October, statin therapy is indicated. - However, the decision was made to defer medication for six months to allow the patient an opportunity for lifestyle modification, including dietary changes and reduced alcohol intake. - A lipid panel will be repeated before the next visit. Code(s): E78.2 - Mixed hyperlipidemia Category: Medical Plan: Health Maintenance: - Counseled on lifestyle modifications to be implemented over the next six months. - Recommended dietary changes, including reducing salt, processed foods, fatty foods, and butter. - Advised to reduce high-risk alcohol consumption. - Scheduled for a follow-up physical in 6 months. - Blood work has been ordered to be completed one week before the next appointment. Patient was informed and verbally consented to the use of an ambient scribe for clinic note documentation during this visit. Plan I discussed with the patient the ongoing urinary symptoms despite taking doxazosin and my plan to add finasteride to better manage symptoms. I explained that the patient's blood pressure remains high and that we will switch from losartan to a combination pill of losartan-hydrochlorothiazide for better control. We reviewed the lab results from October, which showed elevated bad cholesterol, and I informed the patient that while a statin is indicated, I am giving the patient a six-month window to improve this with lifestyle changes. I emphasized the importance of dietary changes, specifically reducing salt and alcohol intake, for improving both blood pressure and cholesterol. We agreed on a follow-up visit in six months, with blood work to be completed a week prior to reassess these conditions. Orders: Orders Complete Blood Count Auto Diff 6 Months Z00.00 - Encounter for general adult medical examination without abnormal findings Hepatitis A,B,C Profile 6 Months Z00.00 - Encounter for general adult medical examination without abnormal findings Lipid Panel 6 Months Z00.00 - Encounter for general adult medical examination without abnormal findings Microalbumin, Random (w Creat) 6 Months Z00.00 - Encounter for general adult medical examination without abnormal findings Comprehensive Met. Panel 6 Months Z00.00 - Encounter for general adult medical examination without abnormal findings Hemoglobin A1c 6 Months Z00.00 - Encounter for general adult medical examination without abnormal findings HIV Ab/Ag 6 Months Z00.00 - Encounter for general adult medical examination without abnormal findings Syphilis Screen 6 Months Z00.00 - Encounter for general adult medical examination without abnormal findings TSH reflex Free T4 6 Months Z00.00 - Encounter for general adult medical examination without abnormal findings Vitamin D 25-OH Total 6 Months Z00.00 - Encounter for general adult medical examination without abnormal findings Medications: New finasteride 5 mg PO DAILY 90 tabs 1RF losartan-hydrochlorothiazide 100-12.5 mg 1 tab PO DAILY 90 tabs 0RF Patient Instructions: - Stop taking your current losartan 100 mg prescription. - Start taking the new combination pill containing losartan and hydrochlorothiazide for your blood pressure. - You will be starting a new medication, finasteride, for your prostate symptoms. Continue taking your doxazosin as well. - Reduce your alcohol intake. - Make changes to your diet by cutting down on salt, processed foods, and fatty foods. - Try to limit fluids like coffee after 2-3 PM and any drinks after 6-7 PM to help with nighttime urination. - Please give this paperwork to the front desk representative to schedule your follow-up appointment in six months (around September). - You will need to have blood work done one or two weeks before your next appointment. - If you need any medication refills before your next visit, please contact our office.
[2025-04-12 15:45] VITALS: BP 152/90; PULSE 52; RESP 18; TEMP 36.6; O2SAT 99; BMI 29.8
--- OUTSIDE RECORDS SUMMARY | 2025-04-12 18:33 | XMS_ITS | Patient Health Record ---
Author Organization [facility] Address [address] [place] [address] Care Team Providers Care Applications Support Lead Name Role Phone Clifford (RETIRED) Wilian THOMAS Primary Care Provide r Art Cabrera Unavailable [phone] Reason For Referral No Information Medications Medication SIG (Take, Route, Frequency, Duration) Notes Start Date End Date Status Ibuprofen PRN Active Doxazosin Mesylate 2 MG Tablet Orally Active Losartan Potassium 50 MG Tablet Orally Active Immunizations Vaccine Route Administration Date Status Comme nts Influenza Unknown 02/29/2020 Administered Social History Tobacco Use: Social History Observation Description Date Details (start date - stop date) Never Smoker NA - NA Social History Drugs/Alcohol: Social Info Question Answer Notes Alcohol Screen Did you have a drink containing alcohol in the past year? Yes How often did you have a drink containing alcohol in the past year? 2 to 4 times a month (2 points) How many drinks did you have on a typical day when you were drinking in the past year? 3 or 4 drinks (1 point) How often did you have 6 or more drinks on one occasion in the past year? 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 Problems Problem Type SNOMED Code ICD Code Onset Dates Problem Status W/U Status Risk Notes Problem Screening for malignant neoplasm of colon (538053133) Encounter for screening for malignant neoplasm of colon (Z12.11) Active confirmed Problem Preprocedural examination (277443909870675) Preprocedural examination (Z01.818) Active confirmed Problem Diverticulosis of colon (921776071) Diverticulosis of colon (K57.30) Active confirmed Plan Of Treatment Pending Test Test Name Order Date Pathology 02/25/2021 Future Test Test Name Order Date COLONOSCOPY 09/05/2020 Insurance Providers Payer Name Payer Address Payer Phone Subscriber Number Group Number Insured Name Patient Relationship to Insured Coverage Start Date Coverage End Date [facility] [address] [place], [place] [id number] ART FROST Self - patient is the insured Medical (General) History Medical History History ICD Code Hypertension Denies NE,DM,CVA,Lung disease,renal dise ase Surgical History Surgery Date(Month/Year)
--- OUTSIDE RECORDS SUMMARY | 2025-04-12 18:33 | XMS_ITS | Patient Health Record ---
Author Organization [facility] [place] Address [address] [place] [address] Care Team Providers Care Senior [employer] Soa Developer Name Role Phone Wilian Horton MD Primary Care Provider Unavaila Aren Borden Unavailable [phone] Reason For Referral No Information Medications Medication SIG (Take, Route, Fr equency, Duration) Notes Start Date End Date Status Daily Vitamin - 1 tablet Orally Once a day Active Social History Tobacco use other than smoking: Question Answer Notes Are you an other tobacco user? No Problems Problem Type SNOMED Code ICD Code Onset Dates Problem Status W/U Status Risk Notes Problem Plantar fascial fibromatosis (80520649) Plantar fascial fibromatosis (M72.2) Active confirmed Plan Of Treatment Pending Test Test Name Order Date ,[id number] TENDON SHEATH/LIGAMENT 0 09/29/2016 Insurance Providers Payer Name Payer Address Payer Phone Subscriber Number Group Number Insured Name Patient Relationship to Insured Coverage Start Date Coverage End Date [facility] [employer] Others [address] [place] [address] [phone] [id number] Naren Forbes Self - patient is the insured Medical (General) History Medical History History ICD Code Back,Hip,and Knee pain Chicken pox
== END 2025-04-12 16:01 | disposition home or self-care (01) ==
PROVIDERS: PCP Student in an Organized Health Care Education/Training Program; Visit Provider Student in an Organized Health Care Education/Training Program
DX: I10 Essential (primary) hypertension (principal); N40.1 Benign prostatic hyperplasia with lower urinary tract symptoms; N13.8 Other obstructive and reflux uropathy; F10.90 Alcohol use, unspecified, uncomplicated; E78.2 Mixed hyperlipidemia